=== PATIENT | male | born 1950 | race Caucasian/White ===

== ENCOUNTER 2016-06-26 06:55 | Day surgery (SDC) | payer BC ==
--- NOTE | ~2016-06-26 | OP ---
Record Of Operation [facility] [address] [place]. [address] NAME: ANNE-MARIE SAGE : 54 STATUS : [facility]#: [id number] AGE: 65 ADM/REG DATE : 06/26/16 MR#: [id number] REPORT SERV DATE: 07/31/16 DICTATED BY: LÁZARO SHOOK DATE: 07/31/16 REPORT STATUS : Draft TRANSCRIBED BY: MODL DATE: 07/31/16 DATE OF PROCEDURE: 06/26/2016 PREOPERATIVE DIAGNOSIS: Left neck mass, with probable lipoma. POSTOPERATIVE DIAGNOSIS: Left neck mass, with probable lipoma. PROCEDURE: An excision of a left neck mass. SURGEON: Lázaro Shook M.D. ANESTHESIA: General endotracheal. ESTIMATED BLOOD LOSS: 10 mL. INTRAOPERATIVE FLUIDS: 1200 mL crystalloid. FINDINGS: Two separate fatty tissue mass was excised from the left neck, inferior to the left parotid gland. While the mass was lying adjacent to the inferior aspect of the parotid gland, it did not violate the capsule of the parotid. OPERATIVE PROCEDURE: The patient was identified in the Holding, transported to the operating room. In the operating room, the patient was placed on the operating room table in supine position. Following induction of anesthesia, the patient was intubated without difficulty. A proposed incision was diagrammed in a neck skin crease in the midportion of the left neck, inferior to the left neck mass. This area was injected with 1% lidocaine with 1:100,000 epinephrine. The patient was then prepped and draped in a sterile fashion. An incision was created through the aforementioned area of the skin of the neck on the left side. As had been noted on the preoperative CT scan, the mass was lying superficial to the platysma muscle. The platysma muscle was, therefore, left intact throughout the course of the dissection to assist in protecting the marginal mandibular branch of the facial nerve. Dissecting between the skin and the platysma muscle, a fatty tissue prominence was identified which measured approximately 2 cm in diameter. Dissection was carried around the periphery of this fatty mass, using the bipolar cautery for hemostasis. Following removal of this initial piece of fatty tissue, a second prominence of fatty tissue was identified posterior and superior to the previous fatty mass. The second mass was, therefore, excised in a similar fashion. Palpation of the neck at this point revealed no residual mass within the subcutaneous tissue. Hemostasis was achieved with the use of the bipolar cautery. The inferior aspect of the skin incision was then undermined for a length of approximately 2 cm to improve the appearance of the closure. Hemostasis was, once again, achieved with the use of the bipolar cautery. SURGIFLO was applied to the operative bed. The deep tissues were closed with interrupted buried 3-0 chromic suture. A running 5-0 Prolene suture was placed in a subcuticular fashion for skin closure. Steri-Strips were applied to the wound. The patient was subsequently awakened from anesthesia, extubated in the operating room, transported to the recovery room in good condition. The patient tolerated the procedure well. There were no apparent complications. Record Of Operation [facility] [id number] [place]. [address] NAME: ANNE-MARIE SAGE : 54 STATUS : [facility] PAT#: [id number] AGE: 65 ADM/REG DATE : 06/26/16 MR#: [id number] REPORT SERV DATE: 07/31/16 DICTATED BY: LÁZARO SHOOK DATE: 07/31/16 REPORT STATUS : Draft TRANSCRIBED BY: SADE DATE: 07/31/16 SPECIMENS: Included fatty tissue x2 from the subcutaneous tissues of the left neck. ALEX/SADE Lázaro Shook M.D. / [id number] CC: Yossi Dejesus M.D.
[~2016-06-26 06:55] MED LIST: AVODART PO; CENTRUM PO; CLARIT10 PO; FISH-EPA1000 MG PO; GREEN COFFEE PO; IMITREX100 MG PO; LYRICA150 MG PO; METANX PO; MULTIVITAMI1 PO; NASAL MOIST0.65 % NAS; NEXIUM40 PO; NUVIGIL150 MG PO; SKELAXIN8 PO; VITAMIN D1000 UNI1 PO; VITAMIN D31000 UNIT PO
== END 2016-06-26 17:52 | disposition home or self-care (01) ==
LOC: SDC 06:55
PROVIDERS: Otolaryngology
PROC: 0WB60ZX Excision of Neck, Open Approach, Diagnostic (ICD-10-PCS; principal; 2016-06-26 08:30)
DX: E65 Localized adiposity (principal); G43.909 Migraine, unspecified, not intractable, without status migrainosus; K21.9 Gastro-esophageal reflux disease without esophagitis; M19.90 Unspecified osteoarthritis, unspecified site; K58.9 Irritable bowel syndrome, unspecified; F41.9 Anxiety disorder, unspecified; Z87.891 Personal history of nicotine dependence; Z79.899 Other long term (current) drug therapy; Z98.890 Other specified postprocedural states
CPT/HCPCS: 85014; 85018; 88304; 93005; A9270-GY; J0690; J2250; J2370; J2405; J2710; J3010